=== PATIENT | female | born 1975 | race Caucasian/White ===

== ENCOUNTER → 2017-10-27 | Outpatient (CLI) | payer BC ==
--- NOTE | 2017-10-27 09:50 | MM ---
Reason for exam: clinical finding. History: Took hormonal contraceptives for 3 years. Physical Findings: Nurse Summary: 1 x 2cm nodule in the left breast at 12 o'clock (nurse ts). MG 3D Diag Mammo W/Cad HAY Bilateral CC and MLO view(s) were taken. The breast tissue is heterogeneously dense. This may lower the sensitivity of mammography. Finding: There is a 24 mm circumscribed, indistinct oval mass in the middle position upper quadrant of the left breast. These results were verbally communicated with the patient and result sheet given to the patient on 10/27/17. ASSESSMENT: Incomplete: need additional imaging evaluation, BI-RAD 0 RECOMMENDATION: Ultrasound of the left breast.
--- NOTE | 2017-10-27 09:53 | USB ---
Reason for exam: additional evaluation requested from abnormal screening. History: Took hormonal contraceptives for 3 years. US Breast Limited LT Left breast ultrasound demonstrates a 1.7 x 1.4 x 1.1cm oval, cystic lesion at 12 o'clock and a 1.4 x 1.5 x 1.2cm oval, cystic lesion at 12 o'clock. Simple two adjacent cysts. These results were verbally communicated with the patient and result sheet given to the patient on 10/27/17. ASSESSMENT: Benign, BI-RAD 2 RECOMMENDATION: Routine screening mammogram of both breasts in 1 year.
== END | disposition home or self-care (01) ==
LOC: RADMAMWWP 08:12
PROVIDERS: ATTEND Obstetrics & Gynecology Obstetrics
DX: N63.10 Unspecified lump in the right breast, unspecified quadrant (principal); N63.20 Unspecified lump in the left breast, unspecified quadrant; R92.8 Other abnormal and inconclusive findings on diagnostic imaging of breast
CPT/HCPCS: 77066; 76642; G0279

== ENCOUNTER → 2017-11-15 | Outpatient (CLI) | payer BC ==
[2017-11-15 16:11] LABS: Basophils % (A) 1 %; Eosinophils # (A) 0.1 k/uL (0-0.7); Eosinophils % (A) 1 %; HGB 13.7 gm/dL (11.4-16.0); Lymphocytes # (A) 2.1 k/uL (1.0-4.8); Lymphocytes % (A) 31 %; MCH 28.5 pg (25.0-35.0); MCHC 32.6 g/dL (31.0-37.0); MCV 87.7 fL (80.0-100.0); Mean Platelet Volume 7.3; Monocytes # (A) 0.6 k/uL (0-1.0); Monocytes % (A) 8 %; Neutrophils # (A) 3.9 k/uL (1.3-7.7); Neutrophils % (A) 58 %; Platelet Count 250 k/uL (150-450); RBC 4.79 m/uL (3.80-5.40); RDW 13.4 % (11.5-15.5); WBC 6.7 k/uL (3.8-10.6)
== END | disposition home or self-care (01) ==
LOC: LABPAT 15:38
PROVIDERS: ATTEND Obstetrics & Gynecology Obstetrics
DX: Z01.812 Encounter for preprocedural laboratory examination (principal); N92.0 Excessive and frequent menstruation with regular cycle
CPT/HCPCS: 36415; 85025

== ENCOUNTER 2017-12-05 07:58 | Day surgery (SDC) | payer BC ==
[2017-12-02 08:55] VITALS: BMI 22.2
--- NOTE | 2017-12-02 09:09 | P.HPOB ---
History of Present Illness H&P Date: 12/02/17 Chief Complaint: menorrhagia This is a 42 yo that presents with c/o menorrhagia. she notes menses to be regular q month with a heavy flow, lasting 7 days. denies BTB, and dysmenorrhea. Review of Systems Constitutional: Denies chills, Denies fatigue, Denies fever Respiratory: Denies cough, Denies dyspnea Gastrointestinal: Denies constipation, Denies diarrhea Menstruation: Reports period heavy Past Medical History Additional Past Medical History / Comment(s): menorrhagia History of Any Multi-Drug Resistant Organisms: None Reported Past Surgical History: Orthopedic Surgery Additional Past Surgical History / Comment(s): Lithotripsy; Finger surgery Past Anesthesia/Blood Transfusion Reactions: Motion Sickness, Postoperative Nausea & Vomiting (PONV) Smoking Status: Current every day smoker - Past Family History Mother Family Medical History: No Reported History Medications and Allergies Home Medications Medication Instructions Recorded Confirmed Type No Known Home Medications [No 12/02/17 12/02/17 History Known Home Medications] Allergies Allergy/AdvReac Type Severity Reaction Status Date / Time No Known Allergies Allergy Verified 12/02/17 08:49 Exam Osteopathic Statement: *. No significant issues noted on an osteopathic structural exam other than those noted in the History and Physical/Consult. - Vital Signs Vital signs: Intake and Output 12/01/17 12/02/17 12/02/17 22:59 06:59 14:59 Other: Weight 70.307 kg - OBG Physical Exam Vagina: pink rugated no lesions. Uterus: normal size Adnexa: both: normal Assessment and Plan (1) Menorrhagia Status: Acute Code(s): N92.0 - EXCESSIVE AND FREQUENT MENSTRUATION WITH REGULAR CYCLE SNOMED Code(s): 489924091 Plan: plan H DC EA procedure reviewed, information given and all questions answered Time with Patient: Less than 30
[~2017-12-05 07:58] MED LIST: DEXAMETHASONE SOD PHOSPHATE 10 MG/ML 1 ML VIAL IV ONE; LACTATED RINGERS 1,000 ML IV SCH; LIDOCAINE 1% 20 ML VIAL (10MG/ML) FOR IV START INTRADERMA PRN; MORPHINE SULFATE 2 MG/ML SYRINGE IV PRN; ONDANSETRON ODT 4 MG TAB PO ONE; Pre Op ABX Message 1 EACH MISC MISCELLANE ONE; SCOPOLAMINE 1.5MG/72HR PATCH TRANSDERM ONE
[2017-12-05] MEDS ORDERED: LIDOCAINE 1% INJ 10MG/ML (20 ML MDV) ONE (09:27)
[2017-12-05] MEDS ORDERED: MIDAZOLAM 2 MG/2 ML VIAL ONE (09:27)
[2017-12-05] MEDS ORDERED: PROPOFOL 10 MG/ML 20 ML VIAL IV ONE (09:27)
[2017-12-05] MEDS ORDERED: fentaNYL (PF) 50 MCG/ML 2 ML AMP ONE (09:27)
[2017-12-05] MEDS ORDERED: KETOROLAC 30 MG/ML 1 ML VIAL ONE (09:27)
--- NOTE | 2017-12-05 09:55 | P.OP ---
Date of Procedure: 12/05/17 Preoperative Diagnosis: Menorrhagia Postoperative Diagnosis: Same Procedure(s) Performed: Hysteroscopy, dilation and curettage, endometrial ablation with NovaSure Anesthesia: MAC Surgeon: Farida Smith Estimated Blood Loss (ml): 5 IV fluids (ml): 300 Urine output (ml): 250 Pathology: other (Endometrial curettings) Condition: stable Disposition: PACU Indications for Procedure: Menorrhagia Operative Findings: Normal proliferative appearing endometrial cavity Description of Procedure: Patient was seen in the preoperative area and informed consent was obtained. Risks were reviewed in detail in the office and all questions were answered. Patient status taken to the operating suite and general anesthesia was obtained without difficulty by the anesthesia department. She was then prepped and draped in normal sterile fashion in the dorsal lithotomy position. A regular catheter was then used to drain the bladder clear yellow urine. A weighted speculum was placed in the posterior vaginal vault intralipids the cervix was visualized and grasped with a single-tooth tenaculum. The endocervical canal was then dilated to 18-Tristanian. Hysteroscope was placed through the cervix and toward the endometrium cavity and a normal appearing proliferative endometrium was noted. The hysteroscope was removed without difficulty, a sharp curettage was then performed until gritty texture was noted in all 4 quadrants to the cavity. The specimens and sent to pathology for analysis. At this point the NovaSure device was opened and set to the patient's uterine measurements of total length of 5 with a 4.2 after cavity assessment was passed the cycle was allowed to complete for time of 75 seconds. Afterwards the NovaSure device was removed without difficulty the single tooth tenaculum was taken off of the anterior lip of the cervix and hemostasis was appreciated. Patient tolerated procedure well, All counts are correct 2 and patient tolerated procedure well
[2017-12-05 10:07] VITALS: TEMP 97
[2017-12-05 11:11] VITALS: BP 106/72; PULSE 72; RESP 18
== END 2017-12-05 11:33 | disposition home or self-care (01) ==
LOC: OR 07:58
PROVIDERS: ATTEND Obstetrics & Gynecology Obstetrics
DX: N85.8 Other specified noninflammatory disorders of uterus (principal); N92.0 Excessive and frequent menstruation with regular cycle; F17.200 Nicotine dependence, unspecified, uncomplicated
CPT/HCPCS: 58563; 81025; 88305; J2250; J1100; J2001; J3010; J1885; J2704

== ENCOUNTER → 2018-12-22 | Outpatient (CLI) | payer BC ==
--- NOTE | 2018-12-26 11:36 | MM ---
Reason for exam: screening (asymptomatic). Last mammogram was performed 1 year and 2 months ago. History: Took hormonal contraceptives for 3 years. Physical Findings: A clinical breast exam by your physician is recommended on an annual basis and results should be correlated with mammographic findings. MG 3D Screening Mammo W/Cad Bilateral CC and MLO view(s) were taken. Prior study comparison: October 27, 2017, bilateral MG 3d diag mammo w/cad HAY. The breast tissue is extremely dense which could obscure a lesion on mammography. There is no discrete abnormality. ASSESSMENT: Negative, BI-RAD 1 RECOMMENDATION: Routine screening mammogram of both breasts in 1 year.
== END | disposition home or self-care (01) ==
LOC: RADMAMWWP 07:47
PROVIDERS: ATTEND Obstetrics & Gynecology Obstetrics
DX: Z12.31 Encounter for screening mammogram for malignant neoplasm of breast (principal)
CPT/HCPCS: 77063; 77067

== ENCOUNTER → 2020-05-23 | Outpatient (CLI) | payer BC ==
--- NOTE | 2020-05-27 08:10 | MM ---
Reason for exam: screening (asymptomatic). Last mammogram was performed 1 year and 5 months ago. History: Patient is postmenopausal. Took hormonal contraceptives for 3 years. Physical Findings: A clinical breast exam by your physician is recommended on an annual basis and results should be correlated with mammographic findings. MG 3D Screening Mammo W/Cad Bilateral CC and MLO view(s) were taken. Prior study comparison: December 22, 2018, bilateral MG 3d screening mammo w/cad. October 27, 2017, bilateral MG 3d diag mammo w/cad HAY. The breast tissue is heterogeneously dense. This may lower the sensitivity of mammography. Redemonstrated subtle circumscribed low density area posterior upper outer quadrant right breast only apparent on 3D suggestive of a cyst. No significant changes when compared with prior studies. ASSESSMENT: Benign, BI-RAD 2 RECOMMENDATION: Routine screening mammogram of both breasts in 1 year.
== END | disposition home or self-care (01) ==
LOC: RADMAMWWP 10:39
PROVIDERS: ATTEND Obstetrics & Gynecology Obstetrics
DX: Z12.31 Encounter for screening mammogram for malignant neoplasm of breast (principal)
CPT/HCPCS: 77063; 77067

== ENCOUNTER → 2022-12-16 | Outpatient (CLI) | payer OTHER ==
--- NOTE | 2022-12-17 07:10 | MM ---
Reason for Exam: Screening (asymptomatic). Last mammogram was performed 2 year(s) and 7 month(s) ago. Patient History: Menarche at age 17. First Full-Term at age 20. Postmenopausal. Patient used Hormonal Contraceptives for 3 years. Risk Values: Kendal 5 year model risk: 0.6%. NCI Lifetime model risk: 6.3%. Prior Study Comparison: 10/27/2017 Bilateral Diagnostic Mammogram, [facility]. 12/22/2018 Bilateral Screening Mammogram, [facility]. 05/23/2020 Bilateral Screening Mammogram, [facility]. Tissue Density: The breast tissue is heterogeneously dense. This may lower the sensitivity of mammography. Findings: Analyzed By CAD. There are new circumscribed round masses bilaterally. For reference left breast has 1.6 cm circumscribed round mass in the middle depth central aspect and the right breast has 2 larger masses in the middle to posterior depth upper aspect measuring up to 3.0 cm in size. Overall Assessment: Incomplete: need additional imaging evaluation, BI-RAD 0 Management: Diagnostic Breast Ultrasound of both breasts. . Patient should continue monthly self-breast exams. A clinical breast exam by your physician is recommended on an annual basis. This exam should not preclude additional follow-up of suspicious palpable abnormalities. Note on Kendal scores and lifetime risk: 1. A Kendal score greater than 3% is considered moderate risk. If this is the case, consider specialist referral to assess eligibility for a risk reducing agent. 2. If overall lifetime risk for the development of breast cancer is 20% or higher, the patient may qualify for future screening with alternating mammogram and breast MRI. Electronically signed and approved by: Edgar Junior M.D.
== END | disposition home or self-care (01) ==
LOC: RADMAMWWP 12:46
PROVIDERS: ATTEND Obstetrics & Gynecology Obstetrics
DX: Z12.31 Encounter for screening mammogram for malignant neoplasm of breast (principal); Z78.0 Asymptomatic menopausal state
CPT/HCPCS: 77063; 77067

== ENCOUNTER → 2023-01-06 | Outpatient (CLI) | payer OTHER ==
--- NOTE | 2023-01-06 08:54 | USB ---
Reason for Exam: Additional evaluation requested from abnormal screening. Patient History: Menarche at age 17. First Full-Term at age 20. Postmenopausal. Patient used Hormonal Contraceptives for 3 years. Risk Values: Kendal 5 year model risk: 0.6%. NCI Lifetime model risk: 6.3%. Technique: Method: Targeted. Prior Study Comparison: 12/22/2018 Bilateral Screening Mammogram, [facility]. 05/23/2020 Bilateral Screening Mammogram, [facility]. 12/16/2022 Bilateral MG 3D screening mammo w/cad, [facility]. Findings: The upper outer quadrant of both breasts, the axilla of both breasts and the retroareolar of both breasts were scanned. Targeted ultrasound right breast upper outer quadrant 9:00 to 12:00 including the subareolar region and axilla. * Dense tissues are present throughout. * At the 10:00 position, 9 cm from the nipple, there is a cluster of 3 cysts ranging in size from 1.6 cm to 2.6 cm. * At the 12:00 position, there is a fourth cyst measuring 1.6 cm. * Likely mammographic correlates. * No other solid or cystic lesion or axillary lymphadenopathy Targeted ultrasound left breast upper outer quadrant 12:00 to 3:00 including the subareolar region and axilla. * Dense tissues are present throughout. * At the 12:00 position, 6 cm from the nipple, there is a 1.6 cm benign cyst. Likely mammographic correlate. * No other solid or cystic lesion or axillary lymphadenopathy. Overall Assessment: Probably benign, BI-RAD 3 Management: Diagnostic Mammogram of both breasts in 1 year. A clinical breast exam by your physician is recommended on an annual basis and results should be correlated with mammographic findings. This exam should not preclude additional follow-up of suspicious palpable abnormalities. Results were given to the patient verbally at the time of exam. Electronically signed and approved by: Beto Dao M.D. Radiologist
== END | disposition home or self-care (01) ==
LOC: RADUSWWP 08:11
PROVIDERS: ATTEND Obstetrics & Gynecology Obstetrics
DX: R92.8 Other abnormal and inconclusive findings on diagnostic imaging of breast (principal); Z78.0 Asymptomatic menopausal state